=== PATIENT | male | born 1990 | race Hispanic/Latino ===

== ENCOUNTER 2017-10-30 14:33 | Emergency (ER) | payer BC, MEDICAID ==
[2017-10-30 14:34] VITALS: BMI 28.5
[2017-10-30 14:49] VITALS: RESP 20; O2SAT 100
[2017-10-30] MEDS ORDERED: Sodium Chloride 0.9% 1,000 ML IV ONE (15:00)
[2017-10-30] MEDS ORDERED: Sodium Chloride 0.9% 1,000 ML ONE (15:05)
--- NOTE | 2017-10-30 15:28 | RAD ---
HISTORY: abd pain COMPARISON: No prior. FINDINGS: BOWEL: Normal. No obstruction. No free air. BONES: Normal. OTHER FINDINGS: None. IMPRESSION: No active disease.
[2017-10-30 15:30] LABS: BASO % 0.4 % (0.0-2.0); EOS % 0.3 % (0.0-4.0); HEMOGLOBIN 15.5 g/dL (12.0-18.0); LYMPH # 1.3 K/uL (1.0-4.3); LYMPH % 15.2 % (20.0-40.0); MEAN CELL VOLUME 91.4 fL (80.0-94.0); MEAN CORPUSCULAR HEMOGLOBIN 31.3 pg (27.0-31.0); MEAN CORPUSCULAR HGB CONC 34.2 g/dL (33.0-37.0); MEAN PLATELET VOLUME 9.4 fL (7.2-11.7); MONO # 0.4 K/uL (0.0-0.8); MONO % 4.3 % (0.0-10.0); NEUT # 7.1 K/uL (1.8-7.0); NEUT % 79.8 % (50.0-75.0); RBC 4.96 Mil/uL (4.40-5.90); RED CELL DISTRIBUTION WIDTH 13.6 % (11.5-14.5); WHITE BLOOD COUNT 8.9 K/uL (4.8-10.8)
[2017-10-30 16:11] LABS: ALB/GLOB RATIO 1.2 (1.0-2.1); ALBUMIN 4.2 g/dL (3.5-5.0); ALT/SGPT 31 U/L (21-72); AST/SGOT 29 U/L (17-59); BLOOD UREA NITROGEN 8 mg/dL (9-20); CALCIUM 8.9 mg/dl (8.6-10.4); GFR AFRICAN-AMERICAN > 60; GFR NON-AFRICAN AMERICAN > 60; LIPASE 51 U/L (23-300)
--- NOTE | 2017-10-30 16:36 | C.PDOC ---
History Of Present Illness 27 year old male complaining of abdominal pain since this morning at 4AM. Patient states the pain was initially in the epigastric region and then he developed pain in the periumbilical region. He describes pain as sharp with associated symptoms of nausea. He forced himself to throw up. He denies any fever, diarrhea, chills, chest pain, SOB, or any other associated symptoms . Patient is otherwise well. Time Seen by Provider: 10/30/17 14:54 Chief Complaint (Nursing): Abdominal Pain History Per: Patient History/Exam Limitations: no limitations Onset/Duration Of Symptoms: Days Current Symptoms Are (Timing): Still Present Location Of Pain/Discomfort: Epigastric, Periumbilical Past Medical History Reviewed: Historical Data, Nursing Documentation, Vital Signs Vital Signs: Last Vital Signs Temp 98.2 F 10/30/17 17:14 Pulse 62 10/30/17 17:14 Resp 20 10/30/17 17:14 BP 131/82 10/30/17 17:14 Pulse Ox 100 10/30/17 19:59 - Medical History PMH: No Chronic Diseases Surgical History: No Surg Hx Family History: States: No Known Family Hx - Social History Hx Alcohol Use: Yes (socially) Hx Substance Use: No Review Of Systems Except As Marked, All Systems Reviewed And Found Negative. Constitutional: Negative for: Fever, Chills Cardiovascular: Negative for: Chest Pain Respiratory: Negative for: Shortness of Breath Gastrointestinal: Positive for: Nausea, Abdominal Pain. Negative for: Diarrhea Physical Exam - Physical Exam Appears: Non-toxic, No Acute Distress Skin: Normal Color, Warm, Dry Head: Atraumatic, Normacephalic Eye(s): bilateral: Normal Inspection Oral Mucosa: Moist Gastrointestinal/Abdominal: Soft, No Tenderness, No Distention, No Guarding, Other (Mild discomfort of deep palpation to mid abdomen ) Back: CVA Tenderness Neurological/Psych: Oriented x3 Gait: Steady ED Course And Treatment - Laboratory Results Result Diagrams: 10/30/17 15:24 10/30/17 15:54 O2 Sat by Pulse Oximetry: 100 (RA) Pulse Ox Interpretation: Normal - Other Rad Xray Abdomen X-Ray: Viewed By Me, Read By Radiologist Interpretation: Accession No. : [id number]. Patient Name / ID : ROMEO CHAN / [id number]. Exam Date : 10/30/2017 15:03:36 ( Approved ). Study Comment : Sex / Age : M / 27Y. Creator : Jimenez Felix MD. Dictator : Jimenez Felix MD. Curatorial Specialist : Assistant To The Dean : Jimenez Felix MD. Approver2 : Report Date : 10/30/2017 15:27:06. My Comment : . HISTORY: abd pain. COMPARISON: No prior. FINDINGS: BOWEL: Normal. No obstruction. No free air. BONES: Normal. OTHER FINDINGS: None. IMPRESSION: No active disease. Medical Decision Making Medical Decision Making: Impression: Abdominal pain Orders: Xray of abdomen Toradol 30mg IM Pepcid 20mg IVP UA Xray of abdomen ordered and reviewed - unremarkable. Patient observed for 2+ hours. Patient reports feeling better on reassessment. Patient is afebrile. Patient instructed to follow up with PMD or return to the ED if symptoms worsen. Patient stable and ready for discharge. Disposition Counseled Patient/Family Regarding: Studies Performed, Diagnosis, Need For Followup - Disposition Disposition: HOME/ ROUTINE Disposition Time: 17:12 Condition: STABLE Additional Instructions: Return to the Emergency Department if pain returns or you develop fever. Drink plenty liquid. Avoid too much bread and/or rice. Forms: [employer] ([place]) - POA Present On Arrival: None - Clinical Impression Clinical Impression: Abdominal pain - Scribe Statement The provider has reviewed the documentation as recorded by the Scribtriny Friedman All medical record entries made by the Scribe were at my direction and personally dictated by me. I have reviewed the chart and agree that the record accurately reflects my personal performance of the history, physical exam, medical decision making, and the department course for this patient. I have also personally directed, reviewed, and agree with the discharge instructions and disposition.
[2017-10-30 17:15] VITALS: BP 131/82; PULSE 62; TEMP 98.2
== END 2017-10-30 17:15 | disposition home or self-care (01) ==
LOC: C.ER 14:33
DX: R10.9 Unspecified abdominal pain (principal)
CPT/HCPCS: 74018; 80053; 83690; 85025; 96361; 96372; 96374; 99284; J1885; J7030

== ENCOUNTER 2018-05-26 19:38 | Emergency (ER) | payer SELFPAY ==
[2018-05-26 19:38] VITALS: BMI 24.3
[2018-05-26 19:45] VITALS: BP 110/70; O2SAT 98
[2018-05-26] MEDS ORDERED: Tmp-Smz 800 mg-160 mg DS Tab PO STA (20:40)
[2018-05-26] MEDS ORDERED: Tmp-Smz 800 mg-160 mg DS Tab ONE (20:56)
--- NOTE | 2018-05-26 20:58 | C.PDOC ---
History Of Present Illness 28 year old male presents to the ED for evaluation of an abscess to the posterior aspect of his right posterior thigh for the past 3 days. Patient reports he is feeling moderate pain to the area now. Patient denies fever, chills, nausea, vomit, rash, drainage, weakness, numbness. Time Seen by Provider: 05/26/18 19:57 Chief Complaint (Nursing): Abnormal Skin Integrity History Per: Patient History/Exam Limitations: no limitations Onset/Duration Of Symptoms: Days (3) Current Symptoms Are (Timing): Still Present Location Of Injury: Right: Leg, Posterior: Leg Quality Of Symptoms: Painful, Swollen Recent travel outside of the [place]: No Additional History Per: Patient Past Medical History Reviewed: Historical Data, Nursing Documentation, Vital Signs Vital Signs: Last Vital Signs Temp 97.4 F L 05/26/18 19:41 Pulse 72 05/26/18 19:41 Resp 20 05/26/18 19:41 BP 110/70 05/26/18 19:41 Pulse Ox 98 05/26/18 19:41 - Medical History PMH: No Chronic Diseases Surgical History: No Surg Hx Family History: States: Unknown Family Hx - Social History Hx Alcohol Use: Yes (socially) Hx Substance Use: Yes - Immunization History Hx Tetanus Toxoid Vaccination: Yes Hx Influenza Vaccination: No Hx Pneumococcal Vaccination: No Review Of Systems Constitutional: Negative for: Fever, Chills Respiratory: Negative for: Cough, Shortness of Breath Gastrointestinal: Negative for: Nausea, Vomiting, Abdominal Pain Musculoskeletal: Positive for: Leg Pain Skin: Positive for: Other (abscess). Negative for: Rash Neurological: Negative for: Weakness, Numbness, Headache, Dizziness Physical Exam - Physical Exam Appears: Non-toxic, No Acute Distress Skin: Normal Color, Warm, Dry, Other (4x5 cm erythematous, tender, indurated area of right posterior thigh. Not fluctuant, steaking, drainage) Head: Atraumatic, Normacephalic Eye(s): bilateral: Normal Inspection Neck: Normal ROM, Supple Chest: Symmetrical Cardiovascular: Rhythm Regular Respiratory: Normal Breath Sounds, No Rales, No Rhonchi, No Wheezing Gastrointestinal/Abdominal: Soft, No Tenderness, No Guarding, No Rebound Extremity: Normal ROM, Tenderness (right posterior thigh), Capillary Refill (< 2 seconds) Neurological/Psych: Oriented x3, Normal Speech, Normal Cognition Gait: Steady ED Course And Treatment O2 Sat by Pulse Oximetry: 98 (ON RA) Pulse Ox Interpretation: Normal Progress Note: Plan: - Bactrim 1 tab PO. - Keflex 500 mg PO. - Motrin 600 mg PO. No I&D was indicated at this time, patient was advised to use warm compress on the area. Patient was prescribed antibiotics to take at home and was given the first dose in the ED. Return precautions were discussed and patient understood, patient was advised to follow up in 2 days for a wound check. Disposition Counseled Patient/Family Regarding: Diagnosis, Need For Followup - Disposition Referrals: 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 - Scribe Statement The provider has reviewed the documentation as recorded by the Scribe Yoan Benedict All medical record entries made by the Scribe were at my direction and personally dictated by me. I have reviewed the chart and agree that the record accurately reflects my personal performance of the history, physical exam, medical decision making, and the department course for this patient. I have also personally directed, reviewed, and agree with the discharge instructions and disposition.
[2018-05-26 21:14] VITALS: PULSE 70; RESP 14; TEMP 97.5
== END 2018-05-26 21:08 | disposition home or self-care (01) ==
LOC: C.ER 19:38
DX: L02.425 Furuncle of right lower limb (principal)